=== PATIENT | female | born 1960 | race Caucasian/White ===

== ENCOUNTER 2021-01-02 16:25 | Emergency (ER) | payer OTHER ==
[2021-01-02 16:30] VITALS: TEMP 97.4; BMI 29.2
[2021-01-02] MEDS ORDERED: SODIUM CHLORIDE 0.9% 500 ML INFUS.BAG IV ONE (16:31)
[2021-01-02] MEDS ORDERED: ONDANSETRON 4 MG/2 ML VIAL IVPUSH ONE ×2 (16:31→17:10)
[2021-01-02] MEDS ORDERED: ONDANSETRON 4 MG/2 ML VIAL ONE ×2 (16:45→17:10)
[2021-01-02 16:58] LABS: BASO % 2.3 % (0-2.0); EOS % 0.9 % (0-4.5); HEMATOCRIT 41.6 % (32.4-45.2); HEMOGLOBIN 14.5 GM/dl (10.7-15.3); LYMPH % 48.6 % (8-40); MCH 30.5 pg (25.7-33.7); MCHC 34.8 g/dl (32.0-36.0); MEAN CELL VOLUME 87.7 fl (80-96); MEAN PLT VOLUME 6.8 fl (7.5-11.1); MONO % 0.4 % (3.8-10.2); NEUT % 47.8 % (42.8-82.8); PLATELET COUNT 273 K/MM3 (134-434); RBC 4.74 M/mm3 (3.60-5.2); RDW 12.6 % (11.6-15.6); WHITE BLOOD COUNT 3.6 K/mm3 (4.0-10.8)
[2021-01-02 17:06] LABS: ALBUMIN 4.3 g/dl (3.4-5.0); BILIRUBIN,TOTAL 1.2 mg/dl (0.2-1); CALCIUM 9.2 mg/dl (8.5-10); CREATININE 0.8 mg/dl (0.55-1.3); TOT PROT 6.8 g/dl (6.4-8.2)
[2021-01-02] MEDS ORDERED: FAMOTIDINE 20 MG/50 ML IVPB 20 MG/50 ML MG IVPB ONE ×2 (18:33→18:35)
[2021-01-02] MEDS ORDERED: MAG HYDROX/AL HYDROX/SIMETH 30 ML UNIT-DOSE CUP PO ONE (18:33)
[2021-01-02] MEDS ORDERED: MAG HYDROX/AL HYDROX/SIMETH 30 ML UNIT-DOSE CUP ONE (18:35)
[2021-01-02 18:54] VITALS: BP 114/84; PULSE 89
== END 2021-01-02 19:00 | disposition home or self-care (01) ==
LOC: FER 16:25
PROC: 3E033NZ Introduction of Analgesics, Hypnotics, Sedatives into Peripheral Vein, Percutaneous Approach (ICD-10-PCS; principal; 2021-01-02)
PROC: 3E033GC Introduction of Other Therapeutic Substance into Peripheral Vein, Percutaneous Approach (ICD-10-PCS; 2021-01-02)
DX: R11.2 Nausea with vomiting, unspecified (principal)
CPT/HCPCS: 36415; 80053; 85025; 93005; 99285-25